=== PATIENT | male | born 1995 | race Caucasian/White ===

== ENCOUNTER 2021-02-06 11:08 | Emergency (ER) | payer OTHER ==
[2021-02-06 11:29] VITALS: BP 151/84; PULSE 70; BMI 29.7
[2021-02-06 12:11] VITALS: TEMP 97.6
== END 2021-02-06 12:38 | disposition home or self-care (01) ==
LOC: JERFT 11:08
DX: S93.401A Sprain of unspecified ligament of right ankle, initial encounter (principal)
CPT/HCPCS: 73610-TC-RT-FY; 73630-TC-RT-FY; 99283-25